=== PATIENT | male | born 1965 | race American Indian/Alaskan Native ===

== ENCOUNTER 2018-10-31 10:40 | Emergency (ER) | payer OTHER ==
[2018-10-31] MEDS ORDERED: ZOFRAN IM ONE (11:08)
[2018-10-31] MEDS ORDERED: SUBLIMAZE IM ONE (11:08)
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
[2018-10-31 11:57] VITALS: BP 143/82
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
== END 2018-10-31 12:44 | disposition home or self-care (01) ==
LOC: ED 10:40
DX: S70.11XA Contusion of right thigh, initial encounter (principal); S80.12XA Contusion of left lower leg, initial encounter; F17.200 Nicotine dependence, unspecified, uncomplicated; V23.4XXA Motorcycle driver injured in collision with car, pick-up truck or van in traffic accident, initial encounter; Y93.89 Activity, other specified; Y92.488 Other paved roadways as the place of occurrence of the external cause; Y99.8 Other external cause status
CPT/HCPCS: 73552; 73590; 96372; 99284; J2405; J3010